=== PATIENT | male | born 1940 | race Caucasian/White ===

== ENCOUNTER 2017-10-24 21:05 | Emergency (ER) | payer MEDICARE, BC ==
[~2017-10-24] VITALS: Ht 177.8 cm; Wt 77.1 kg
--- NOTE | 2017-10-24 21:14 | Emergency Room Report ---
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 Apparently was non-syncopal. He put out his hands and cut both of his hands also. He hit the top this had been also his eyebrow on the right-hand side. There was no loss of consciousness. The patient is complaining about pain there at this time. Pain reported 5/10, localized, hands, sharp and burning, not radiating. Denies pain in head. No NV. No dizziness. Not significant bleeding at scene. He is not sure when his last tetanus shot was. Is not taking a blood thinner at this time. 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 Poor recent memory. No CP, palpitations, change in bowels. Allergies: Coded Allergies: No Known Allergies (Unverified , 10/24/17) Patient History Past Medical History: see triage record Social History: Denies: smoking Social History Narrative retired from [employer], born [place], in Assisted Living Reviewed Nursing Documentation: PMH: Agreed; PSxH: Agreed Review of Systems All Other Systems: negative except mentioned in HPI Physical Exam Vital Signs Date Time Temp Pulse Resp B/P (MAP) Pulse Ox O2 Delivery O2 Flow Rate FiO2 10/24/17 21:01 98.2 72 14 91/57 96 Room Air 98.2 Sp02 EP Interpretation: reviewed, normal General Appearance: well appearing, no apparent distress, GCS 15 - poor recent memory Head: normocephalic, other - R eyebrow and scalp lacerations Eyes: bilateral eye normal inspection, bilateral eye PERRL, bilateral eye EOMI ENT: moist mucus membranes Neck: full range of motion, supple, no bony tend Respiratory: chest non-tender, lungs clear, normal breath sounds Cardiovascular #1: regular rate, rhythm Cardiovascular #2: 2+ radial (R) Gastrointestinal: normal inspection, normal bowel sounds, non tender, no mass, non-distended Musculoskeletal: back normal, gait/station normal, normal range of motion, tender - bilateral hands at lacerations without deformity. L middle finger tenderness - middle IPJ medially, ROM full without deformity Neurologic: alert, crystal lapper III-XII nml as tested, motor strength/tone normal, DTRs symmetric, sensory intact, speech normal, other - occasional myoclonic jerks, oriented - X2 Psychiatric: mood/affect normal - poor recent memory Reflexes: 2+ knee (R), 2+ knee (L) Skin: warm/dry, laceration - see procedure notes Procedures Laceration/Wound Repair Laceration/Wound Repair #1: Consent: Verbal Wound Location: face Wound's Depth, Shape: superficial, contused tissue Wound Length (cm): 2 Wound Explored: clean Irrigated w/ Saline (ccs): 10 Betadine Prep?: Yes Anesthesia: Lidocaine w/ Epi Wound Debrided: none Wound Repaired With: sutures Suture Size/Type: 6:0, proline Patient Tolerated: Well Complications: None Laceration/Wound Repair #2: Consent: Verbal Wound Location: head Wound's Depth, Shape: into muscle, linear Wound Length (cm): 4 Wound Explored: clean Irrigated w/ Saline (ccs): 10 Betadine Prep?: Yes Anesthesia: Lidocaine w/ Epi Volume Anesthetic (ccs): 4 Wound Debrided: minimal Wound Repaired With: shaw Patient Tolerated: Well Complications: None Laceration/Wound Repair #3: Consent: Verbal Wound Location: upper extremity - R hand Wound's Depth, Shape: superficial, flap Wound Length (cm): 2 Wound Explored: dried blood Irrigated w/ Saline (ccs): 10 Betadine Prep?: Yes Anesthesia: 1% Lidocaine Volume Anesthetic (ccs): 2 Wound Debrided: moderate Wound Repaired With: sutures Suture Size/Type: 5:0, proline Sterile Dressing Applied?: Yes Patient Tolerated: Well Complications: None Laceration/Wound Repair #4: Consent: Verbal Wound Location: upper extremity - L hand Wound's Depth, Shape: superficial, contused tissue Wound Length (cm): 1 Wound Explored: dried blood/grit Irrigated w/ Saline (ccs): 10 Volume Anesthetic (ccs): 2 Wound Debrided: moderate Wound Repaired With: sutures, Dermabond Suture Size/Type: 5:0 Sterile Dressing Applied?: Yes Patient Tolerated: Well Complications: None Progress dermabond used as some oozing of blood. Bleeding controlled Medical Decision Making Diagnostic Impression: Primary Impression: Fall Qualified Codes: W19.XXXA - Unspecified fall, initial encounter Additional Impressions: Head contusion Qualified Codes: S00.93XA - Contusion of unspecified part of head, initial encounter Scalp laceration Qualified Codes: S01.01XA - Laceration without foreign body of scalp, initial encounter Eyebrow laceration Qualified Codes: S01.111A - Laceration without foreign body of right eyelid and periocular area, initial encounter hand lacerations ER Course Patient presents with headache and hand trauma. Differential includes lacerations, contusions, brain bleed amongst others. Tetanus and sutures are indicated. He has a nonfocal neurologic exam at this time. CT is ordered also. The L middle finger is tender, however suspicion of fracture is low based on exam. CT no acute process. Lacerations sutured. Tolerated well. Stable for outpatient observation and treatment. Discussed fall precautions/risk. Rhythm Strip Diag. Results EP Interpretation: yes Rhythm: NSR, no PVC's, no ectopy CT/MRI/US Diagnostic Results CT/MRI/US Diagnostic Results : Imaging Test Ordered: head Impression no bleed fx mass Last Vital Signs Date Time Temp Pulse Resp B/P (MAP) Pulse Ox O2 Delivery O2 Flow Rate FiO2 10/25/17 04:05 98.2 64 14 108/74 97 Room Air 98.2 Status: improved Disposition: HOME, SELF-CARE Condition: Improved Scripts Bacitracin (Bacitracin) 28.4 Gm Oint...g. 1 APPLIC TOPIC BID, #20 GM Prov: Jeff Franklin M.D. 10/25/17 Jeff Franklin M.D. Oct 24, 2017 21:14
[2017-10-24] MEDS ORDERED: Neosporin Oint Ud Pkt TOP ONE (21:15)
[2017-10-24] MEDS ORDERED: Acetaminophen 500mg (ES) tab PO ONE (21:15)
[2017-10-24] MEDS ORDERED: Tetanus/Diptheria/Pertussis Vaccine 0.5ml Syr IM ONE (21:15)
[2017-10-24] MEDS ORDERED: Lidocaine 1% 10mg/ml/Epi 0.005mg/ml 30ml vial INJ ONE (21:15)
[2017-10-24] MEDS ORDERED: Lidocaine 1% MPF 10mg/ml 5ml INJ ONE (21:15)
[2017-10-24 21:19] VITALS: BP 98/60
[2017-10-25] MEDS ORDERED: BACITRACIN15 GM TOPIC (03:07)
[2017-10-25] MEDS ORDERED: Neosporin Oint Ud Pkt TOPIC ONE (03:49)
[2017-10-25] MEDS: Bacitracin Oint UD TOPIC ONE ×2 (03:50→03:56)
[2017-10-25 04:00] VITALS: BP 108/74
[2017-10-25 04:05] VITALS: BP 108/74
--- NOTE | 2017-10-25 08:45 | Diagnostic Imaging Report ---
Indication: Pain status post fall Technique: Continuous helical CT scanning of the head was performed utilizing automated exposure control without intravenous contrast material. Axial and coronal reconstructions were obtained. Comparison: None CT dose: Total DLP 1435.91 mGycm; CTDI vol 70.38 mGy Findings: There is no acute intracranial hemorrhage, mass effect or cortical edema. The ventricles, cisterns and sulci are prominent consistent with atrophy. Periventricular hypoattenuation is seen, a nonspecific finding. There are atherosclerotic vascular calcifications. Visualized mastoid air cells and paranasal sinuses are unremarkable. No focal lesions of the bony calvarium or soft tissues of the scalp are seen. IMPRESSION: No evidence of acute intracranial hemorrhage, mass effect or cortical edema. Atrophy and nonspecific periventricular hypoattenuation suggestive of chronic ischemic microvascular changes. Mild ventriculomegaly thought to be related to generalized atrophy/volume loss. Correlate clinically. This corresponds with the [facility]rad preliminary report. The CT scanner at [facility] is accredited by the [employer] and the scans are performed using protocols designed to limit radiation exposure to as low as reasonably achievable to attain images of sufficient resolution adequate for diagnostic evaluation.
== END 2017-10-25 04:05 | disposition home or self-care (01) ==
LOC: EDBD 21:05 → EMR 21:41
DX: S01.01XA Laceration without foreign body of scalp, initial encounter (principal); S01.111A Laceration without foreign body of right eyelid and periocular area, initial encounter; S61.412A Laceration without foreign body of left hand, initial encounter; S61.411A Laceration without foreign body of right hand, initial encounter; W19.XXXA Unspecified fall, initial encounter; Y92.89 Other specified places as the place of occurrence of the external cause; Z23 Encounter for immunization
CPT/HCPCS: 70450; 90471; 90715; 99284